=== PATIENT | female | born 2000 | race Caucasian/White ===

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

== ENCOUNTER 2021-10-13 21:57 | Emergency (ER) | payer BC, OTHER ==
[2021-10-13] MEDS ORDERED: IBUPROFEN 600 MG TAB PO STA (22:09)
[2021-10-13] MEDS ORDERED: ACETAMINOPHEN TAB 325 MG TAB PO STA (22:09)
[2021-10-13] MEDS ORDERED: ALBUTEROL HFA INHALER INHALATION STA (22:24)
[2021-10-13] MEDS ORDERED: DEXAMETHASONE SOD PHOSPHATE 10 MG/ML 1 ML VIAL IVP STA (22:24)
[2021-10-13] MEDS ORDERED: SODIUM CHLORIDE 0.9% 1,000 ML IV STA (22:24)
--- NOTE | 2021-10-13 23:02 | XR ---
EXAMINATION TYPE: XR chest 2V DATE OF EXAM: 10/13/2021 COMPARISON: None HISTORY: Fever TECHNIQUE: FINDINGS: Heart is normal. Lungs are clear of infiltrate. Heart size is normal. Mediastinum is normal . There are no hilar masses. Bony thorax is intact. IMPRESSION: Normal chest
[2021-10-13] MEDS ORDERED: IPRATROPIUM-ALBUTEROL 3 ML NEB INHALATION STA (23:11)
--- NOTE | 2021-10-13 23:42 | ED ---
Fever HPI - General Chief Complaint: Fever Stated Complaint: Fever Time Seen by Provider: 10/13/21 22:08 Source: patient, family, RN notes reviewed Mode of arrival: wheelchair Limitations: no limitations - History of Present Illness Initial Comments: Patient is a 21-year-old female that presents to the emergency department complaining of fever and bodyaches the past several hours. She notes came to the emergency Department due to shortness of breath. She has she does have a history of asthma and uses at-home inhalers. Patient was otherwise a well- appearing 21-year-old female. She denied chest pain headache nausea vomiting diarrhea constipation fatigue chills. - Related Data Home Medications Medication Instructions Recorded Confirmed ALPRAZolam [Xanax] 1 mg PO BID PRN 10/13/21 10/13/21 Albuterol Inhaler [Ventolin Hfa 2 puff INHALATION RT-QID PRN 10/13/21 10/13/21 Inhaler] FLUoxetine HCL [PROzac] 10 mg PO DAILY 10/13/21 10/13/21 FLUoxetine HCL [PROzac] 20 mg PO DAILY 10/13/21 10/13/21 Allergies Allergy/AdvReac Type Severity Reaction Status Date / Time No Known Allergies Allergy Verified 10/13/21 23:06 Review of Systems ROS Statement: Those systems with pertinent positive or pertinent negative responses have been documented in the HPI. ROS Other: All systems not noted in ROS Statement are negative. Past Medical History Past Medical History: Asthma History of Any Multi-Drug Resistant Organisms: None Reported Past Surgical History: No Surgical Hx Reported Past Psychological History: Anxiety, Depression Smoking Status: Never smoker Past Alcohol Use History: None Reported Past Drug Use History: None Reported General Exam Limitations: no limitations General appearance: alert, in no apparent distress Head exam: Present: atraumatic, normocephalic, normal inspection Eye exam: Present: normal appearance, PERRL, EOMI. Absent: scleral icterus, conjunctival injection, periorbital swelling ENT exam: Present: normal exam, mucous membranes moist Neck exam: Present: normal inspection Respiratory exam: Present: normal lung sounds bilaterally. Absent: respiratory distress, wheezes, rales, rhonchi, stridor Cardiovascular Exam: Present: regular rate, normal rhythm, normal heart sounds. Absent: systolic murmur, diastolic murmur, rubs, gallop, clicks GI/Abdominal exam: Present: soft, normal bowel sounds. Absent: distended, tenderness, guarding, rebound, rigid Extremities exam: Present: normal inspection, full ROM, normal capillary refill. Absent: tenderness, pedal edema, joint swelling, calf tenderness Neurological exam: Present: alert, oriented X3 Psychiatric exam: Present: normal affect, normal mood Skin exam: Present: warm, dry, intact, normal color. Absent: rash Course Vital Signs 10/13/21 10/13/21 10/13/21 22:02 23:33 23:37 Temperature 101.0 F H Pulse Rate 156 H 130 H 140 H Respiratory 22 Rate Blood Pressure 105/71 O2 Sat by Pulse 99 Oximetry Medical Decision Making - Medical Decision Making 2-year-old female with fever and bodyaches for several hours. Covid test, chest x-ray, 600 mg of Motrin, 650 mg of Tylenol, 2 puffs of inhaler ordered. Covid test negative. DuoNeb ordered. Influenza test ordered and is negative also. Patient most likely has an upper respiratory tract infection. Case discussed with Dr. Amado, patient discharge home with follow-up primary care. - Lab Data Lab Results 10/13/21 10/13/21 Range/Units 22:15 22:53 Coronavirus (PCR) Not Detected (Not Detectd) Influenza Type A RNA Not Detected (Not Detectd) Influenza Type B (PCR) Not Detected (Not Detectd) - Radiology Data Radiology results: report reviewed, image reviewed Chest x-ray: Normal chest. Disposition Clinical Impression: Fever, Upper respiratory tract infection Disposition: HOME SELF-CARE Condition: Stable Instructions (If sedation given, give patient instructions): Fever in Adults (ED) Additional Instructions: Please return to the Emergency Department if symptoms worsen or any other concerns. Follow-up with primary care in 1-2 days. Take Tylenol Motrin alternating every 3 hours as needed for fever and aches and pains. Increase fluids, get plenty or rest. Use at home inhalers and/or DuoNeb as prescribed. Is patient prescribed a controlled substance at d/c from ED?: No Referrals: None,Stated [Primary Care Provider] - 1-2 days Time of Disposition: 23:42
[2021-10-13 23:46] VITALS: BP 114/58; PULSE 142; RESP 20; TEMP 100.9
== END 2021-10-14 00:06 | disposition home or self-care (01) ==
LOC: EC 21:57
DX: J06.9 Acute upper respiratory infection, unspecified (principal); J45.909 Unspecified asthma, uncomplicated; F41.9 Anxiety disorder, unspecified; F32.A Depression, unspecified
CPT/HCPCS: 94640 ×2; 87502; 87635; 71046; 99285; 96374; 96361; J1100